=== PATIENT | female | born 1945 | race Caucasian/White ===

== ENCOUNTER 2023-02-08 19:31 | Emergency (ER) | payer MEDICARE, BC ==
[~2023-02-08] VITALS: Ht 167.6 cm; Wt 64.0 kg
[2023-02-08 19:42] VITALS: TEMP 98.2
[2023-02-08 22:24] VITALS: BP 130/67; PULSE 74; RESP 13; O2SAT 98
== END 2023-02-08 23:45 | disposition home or self-care (01) ==
LOC: ER 19:32
DX: S01.112A Laceration without foreign body of left eyelid and periocular area, initial encounter (principal); R51.9 Headache, unspecified; W01.0XXA Fall on same level from slipping, tripping and stumbling without subsequent striking against object, initial encounter; Y93.89 Activity, other specified; Y92.89 Other specified places as the place of occurrence of the external cause; Y99.8 Other external cause status
CPT/HCPCS: 70450; 99284